=== PATIENT | male | born 1985 | race Caucasian/White ===

== ENCOUNTER 2020-09-26 18:17 | Inpatient (IN) | payer BC ==
[2020-09-26] MEDS ORDERED: Sodium Chloride 0.9% 1,000 ML IV ONE (18:57)
[2020-09-26] MEDS ORDERED: fentaNYL 50 MCG/ML SDV IVPUSH ONE ×2 (18:57→19:58)
[2020-09-26] MEDS ORDERED: Ondansetron 4 MG/2 ML SDV IVPUSH ONE (18:57)
--- NOTE | 2020-09-26 19:39 | EDM.PDOC ---
ED HPI GENERAL MEDICAL PROBLEM - General Chief Complaint: Genitourinary Problem Stated Complaint: KIDNEY STONES COMPLICATIONS Time Seen by Provider: 09/26/20 18:44 Source of Information: Reports: Patient History Limitations: Reports: No Limitations - History of Present Illness INITIAL COMMENTS - FREE TEXT/NARRATIVE: Presents reporting left flank and abdominal pain started at about noon today. Some nausea off and on. He reports the pain is sharp and shooting. He has a previous history of a kidney stone which he was able to pass on his own. He had no fever, dysuria. Is otherwise healthy without chronic medical problems and takes no medications. He occasionally smokes cigarettes. No recreational drugs or alcohol. Left Flank Pain Score (Numeric/FACES): 8 - Related Data Allergies Allergy/AdvReac Type Severity Reaction Status Date / Time No Known Allergies Allergy Verified 04/10/18 09:40 MDT Home Meds: Home Meds Ondansetron [Zofran] 4 mg BUCCAL Q6H PRN #5 tab 03/26/18 [Rx] Tamsulosin [Tamsulosin 24 Hr] 0.4 mg PO DAILY #5 cap.er 03/26/18 [Rx] Acetaminophen/HYDROcodone [[place] 325-5 MG] 1 - 2 tab PO Q6H PRN #20 tablet 04/10/18 [Rx] Ondansetron [Zofran ODT] 1 tab PO Q8H PRN #10 tab.dis 04/10/18 [Rx] Tamsulosin HCl [Flomax] 1 cap PO QAM PRN #5 cap.er.24h 04/10/18 [Rx] Past Medical History - Past Health History Medical/Surgical History: Denies Medical/Surgical History Genitourinary History: Reports: Renal Calculus - Infectious Disease History Infectious Disease History: Reports: None - Past Surgical History HEENT Surgical History: Reports: Oral Surgery Male Surgical History: Reports: Other (See Below) Other Male Surgeries/Procedures: Plates put in hand. 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 ED EXAM, GI/ABD - Physical Exam Exam: See Below Exam Limited By: No Limitations General Appearance: Alert, Mild Distress (Due to abdominal pain) Ears: Normal External Exam Nose: Normal Inspection Throat/Mouth: Normal Inspection Head: Atraumatic, Normocephalic Neck: Normal Inspection Respiratory/Chest: No Respiratory Distress, Lungs Clear, Normal Breath Sounds Cardiovascular: Normal Peripheral Pulses, Regular Rate, Rhythm, No Murmur GI/Abdominal Exam: No Distention, Rigid, Tender (Diffusely) Extremities: Normal Inspection Neurological: Alert, Oriented, Normal Cognition Psychiatric: Normal Affect, Normal Mood Skin Exam: Warm, Dry, Intact, Normal Color, No Rash Lymphatic: No Adenopathy Course - Vital Signs Last Recorded V/S: Last Vital Signs Temp 36.8 C 09/26/20 18:56 Pulse 105 H 09/26/20 18:56 Resp 17 09/26/20 18:56 BP 141/93 H 09/26/20 18:56 Pulse Ox 98 09/26/20 18:56 - Orders/Labs/Meds Orders: Active Orders 24 hr Category Date Time Status Abdomen Ltd [US] Stat Exams 09/26/20 20:27 Ordered Labs: Laboratory Tests 09/26/20 09/26/20 09/26/20 Range/Units 18:52 19:35 19:35 WBC 9.28 (4.0-11.0) K/uL RBC 4.29 L (4.50-5.90) M/uL Hgb 15.0 (13.0-17.0) g/dL Hct 44.1 (38.0-50.0) % MCV 102.8 H (80.0-98.0) fL MCH 35.0 H (27.0-32.0) pg MCHC 34.0 (31.0-37.0) g/dL RDW Std Deviation 52.2 (28.0-62.0) fl RDW Coeff of Jamie 14 (11.0-15.0) % Plt Count 134 L (150-400) K/uL MPV 10.70 (7.40-12.00) fL Neut % (Auto) 83.1 H (48.0-80.0) % Lymph % (Auto) 8.6 L (16.0-40.0) % [place] % (Auto) 7.4 (0.0-15.0) % Eos % (Auto) 0.8 (0.0-7.0) % Baso % (Auto) 0.1 (0.0-1.5) % Neut # (Auto) 7.7 H (1.4-5.7) K/uL Lymph # (Auto) 0.8 (0.6-2.4) K/uL [place] # (Auto) 0.7 (0.0-0.8) K/uL Eos # (Auto) 0.1 (0.0-0.7) K/uL Baso # (Auto) 0.0 (0.0-0.1) K/uL Nucleated RBC % 0.0 /100WBC Nucleated RBCs # 0 K/uL Sodium 137 (136-148) mmol/L Potassium 3.7 (3.5-5.1) mmol/L Chloride 102 (98-107) mmol/L Carbon Dioxide 25.3 (21.0-32.0) mmol/L BUN 11 (7.0-18.0) mg/dL Creatinine 0.9 (0.8-1.3) mg/dL Est Cr Clr Drug Dosing 119.41 mL/min Estimated GFR (MDRD) > 60.0 ml/min Glucose 103 (74-106) mg/dL Calcium 9.8 (8.5-10.1) mg/dL Total Bilirubin 0.7 (0.2-1.0) mg/dL AST 23 (15-37) IU/L ALT 26 (14-63) IU/L Alkaline Phosphatase 77 (46-116) U/L Total Protein 7.4 (6.4-8.2) g/dL Albumin 3.6 (3.4-5.0) g/dL Globulin 3.8 (2.6-4.0) g/dL Albumin/Globulin Ratio 0.9 (0.9-1.6) Amylase 101 (25-115) U/L Lipase 517 H (73-393) U/L Urine Color YELLOW Urine Appearance CLEAR Urine pH 8.0 (5.0-8.0) Ur Specific [place] 1.020 (1.001-1.035) Urine Protein NEGATIVE (NEGATIVE) mg/dL Urine Glucose (UA) NEGATIVE (NEGATIVE) mg/dL Urine Ketones NEGATIVE (NEGATIVE) mg/dL Urine Occult Blood NEGATIVE (NEGATIVE) Urine Nitrite NEGATIVE (NEGATIVE) Urine Bilirubin NEGATIVE (NEGATIVE) Urine Urobilinogen 0.2 (<2.0) EU/dL Ur Leukocyte Esterase NEGATIVE (NEGATIVE) Meds: Medications Discontinued Medications Generic Name Dose Route Start Last Admin Trade Name Freq PRN Reason Stop Dose Admin Fentanyl 50 mcg 09/26/20 18:57 09/26/20 19:32 Fentanyl IVPUSH 09/26/20 18:58 50 mcg ONETIME ONE Administration Fentanyl 50 mcg 09/26/20 19:58 09/26/20 20:09 Fentanyl IVPUSH 09/26/20 19:59 50 mcg ONETIME ONE Administration Sodium Chloride 1,000 mls @ 999 mls/hr 09/26/20 18:57 09/26/20 19:31 Normal Saline IV 09/26/20 19:57 999 mls/hr .Bolus ONE Administration Ondansetron HCl 4 mg 09/26/20 18:57 09/26/20 19:32 Zofran IVPUSH 09/26/20 18:58 4 mg ONETIME ONE Administration - Re-Assessments/Exams Free Text/Narrative Re-Assessment/Exam: Case reviewed with Dr. Alarcon. We will get a GB US. Patient now states that he did have an alcohol problem for two years but in the last 6 months he has only drank 1-2 nights a week. 09/26/20 20:29 Free Text/Narrative Re-Assessment/Exam: 09/26/20 21:[address] Cordova regarding labs, imaging, history, clinical course. Same will refer to observation. Departure - Departure Time of Disposition: 21:38 Disposition: Refer to Observation Condition: Good Clinical Impression: Pancreatitis Qualifiers: Chronicity: acute Pancreatitis type: unspecified pancreatitis type Acute pancreatitis complication: no infection or necrosis Qualified Code(s): K85.90 - Acute pancreatitis without necrosis or infection, unspecified - Discharge Information Referrals: PCP,None [Primary Care Provider] - Forms: ED Department Discharge Sepsis Event Note (ED) - Evaluation Sepsis Screening Result: No Definite Risk - Focused Exam Vital Signs: Vital Signs Temp Pulse Resp BP Pulse Ox 12/08/20 18:56 36.8 C 105 H 17 141/93 H 98 - My Orders Last 24 Hours: My Active Orders 09/26/20 20:27 Abdomen Ltd [US] Stat - Assessment/Plan Last 24 Hours: My Active Orders 09/26/20 20:27 Abdomen Ltd [US] Stat
--- NOTE | 2020-09-26 19:59 | CT ---
INDICATION: Abdominal pain and left flank pain. COMPARISON: None available TECHNIQUE: CT examination of the abdomen and pelvis was performed without contrast enhancement using 3 mm thick axial sections from the lung bases through the pubic symphysis. Oral contrast was not administered. Please note that all CT scans at this facility use dose modulation, iterative reconstruction, and/or weight-based dosing when appropriate to reduce radiation dose to as low as reasonably achievable. FINDINGS: In the abdomen, the unenhanced liver, spleen, and adrenals are normal in appearance. There is mild soft tissue stranding located around the pancreatic head with mild fullness of the pancreatic head, findings suggesting mild acute pancreatitis. There is no sign of pseudocyst, phlegmon, or hemorrhage. The pancreatic body and tail are normal in appearance. There are multiple small bilateral nonobstructive calculi scattered throughout both kidneys. The largest calculus is in the lower pole on the left, measuring 6 millimeters in length. There is no sign hydronephrosis or hydroureter on either side. There is no sign of any ureteral calculi. There is a high density 8 millimeter nodule arising from the lower pole of the left kidney. This is probably a high-density cyst, but I recommend correlation with ultrasound to exclude a solid mass. The gallbladder is normal in appearance. The abdominal aorta is normal in caliber with no sign of dilatation. There is no sign of retroperitoneal mass or adenopathy. The stomach, loops of small bowel, and colon in the abdomen are normal in appearance. In the pelvis, the appendix is normal in appearance with no sign of inflammatory process. The loops of small bowel and colon in the pelvis are normal in appearance. The prostate is moderately enlarged and is otherwise normal in appearance. The urinary bladder is normal in appearance. There is no sign of pelvic or inguinal mass or adenopathy. There is no sign of free air or free fluid in the abdomen or pelvis. The lung bases are clear. The osseous structures are normal in appearance for the patient`s age. IMPRESSION: No sign of hydronephrosis, hydroureter, or ureteral calculi on the left to explain the patient`s left flank pain. CT of the abdomen shows findings consistent with mild acute pancreatitis involving the pancreatic head. Numerous nonobstructive calculi scattered throughout both kidneys. The largest is a 6 millimeter calculus located in the lower pole. 8 millimeter high density nodule arising from the lower pole of the left kidney, probably a high-density cyst, but recommend correlation with ultrasound to exclude a solid mass. CT of the pelvis shows moderate enlargement of the prostate. Please note that all CT scans at this facility use dose modulation, iterative reconstruction, and/or weight-based dosing when appropriate to reduce radiation dose to as low as reasonably achievable. Dictated by Norm Perez MD @ Sep 26 2020 7:47PM Signed by Dr. Norm Perez @ Sep 26 2020 7:59PM
[2020-09-26 20:05] LABS: BLOOD UREA NITROGEN,BUN 11 mg/dL (7.0-18.0); CARBON DIOXIDE,CO2 25.3 mmol/L (21.0-32.0); CHLORIDE,CL 102 mmol/L (98-107); GLUCOSE RANDOM 103 mg/dL (74-106); LIPASE 517 U/L (73-393); POTASSIUM,K 3.7 mmol/L (3.5-5.1); SODIUM,NA 137 mmol/L (136-148)
[2020-09-26] MEDS ORDERED: fentaNYL 100 MCG/2 ML SDV IVPUSH ONE (21:08)
--- NOTE | 2020-09-26 22:45 | US ---
INDICATION: Right upper quadrant pain. TECHNIQUE: Ultrasound abdomen limited. Sonographic images of the right upper quadrant were obtained using burk-scale and color Doppler images. COMPARISON: A CT scan from the same date. FINDINGS: Liver: Hepatomegaly measuring 19.6 cm. Mildly coarse hepatic echotexture with foci of mildly increased echogenicity. No discrete hepatic lesion demonstrated. Gallbladder: A contracted gallbladder. No discrete shadowing gallstones seen. Thickened gallbladder wall measuring up to 6 mm. A reported positive sonographic Salomon`s sign. Common bile duct: 3-4 mm. Pancreas: Not seen due to obscuring bowel gas. Right kidney: 10.9 x 5.4 x 6.6 cm. Unremarkable echotexture and cortex. No masses, stones, or hydronephrosis. Vasculature: Partially obscured. The visualized portions are within normal limits in caliber. IMPRESSION: Hepatomegaly with mildly coarse hepatic echotexture and foci of mildly increased echogenicity, which could represent mild steatosis. Correlate with hepatic enzymes to exclude hepatocellular disease. A contracted gallbladder with gallbladder wall thickening and a positive sonographic Salomon sign, however no definite shadowing gallstones seen, given the limitations of a contracted state. The findings may be related to hepatic disease. Correlate clinically, including for acute hepatitis, and, if indicated, consider further evaluation with HIDA scan. Limited evaluation of the pancreas. Dictated by Pratik Barnes MD @ Sep 26 2020 10:34PM Signed by Dr. Pratik Barnes @ Sep 26 2020 10:44PM
[2020-09-26] MEDS ORDERED: HYDROmorphone 1 MG/ML Syringe IVPUSH ONE (22:48)
[2020-09-26] MEDS: fentaNYL 50 MCG/ML SDV ONE ×2 (23:11→23:16)
[2020-09-27] MEDS ORDERED: Albuterol/Ipratropium 3.0-0.5 MG/3 ML Neb Soln NEB PRN (00:18)
[2020-09-27] MEDS ORDERED: Ondansetron 4 MG/2 ML SDV IVPUSH PRN (00:18)
--- NOTE | 2020-09-27 00:22 | PCM.SN.2 ---
- Free Text/Narrative Note: Patient was presented to me on 09/26/20 at 21:16, Hepatic USG was pending so admission was held till work up was complete, patient was officially accepted for admission to [facility] after USG was read by radiology around 10:44 pm.
[2020-09-27] MEDS ORDERED: Lactated Ringers 1,000 ML IV SCH (00:30)
--- NOTE | 2020-09-27 00:30 | PCM.HP.2 ---
H&P History of Present Illness - General Date of Service: 09/27/20 Admit Problem/Dx: Admission Diagnosis/Problem Admission Diagnosis/Problem Pancreatitis - History of Present Illness Initial Comments - Free Text/Narative: Patient is a 35 y/o M with PMH of kidney stones, who comes in with c/o abdominal pain, left flank that started at about noon today with some Nausea. Patient described the pain shooting , off and on, in his upper abdomen mostly and radiating to back as well. He states he has had passed stones in past but this pain was different. Patient denied fever, chills, vomiting, dysuria. He occasionally smokes cigarettes, states usually binge drinks beer over the weekend. No recreational drugs. CT scan of abdomen showed pancreatitis,no cyst, abscess, USG abdomen didnt show any gall stones, but did show contracted gall bladder with wall thickening, hepatomegaly with mild coarse hepatic texture. Liver enzymes were normal, lipase was elevated. Patient also states he had some black stools today, stools were semi solid, no diarrhea, upon further enuiry, patient stated he did take pepto-bismol at home. Patient is admitted for further work up. Left Flank Pain Score (Numeric/FACES): 8 - Related Data Allergies/Adverse Reactions: Allergies Allergy/AdvReac Type Severity Reaction Status Date / Time No Known Allergies Allergy Verified 04/10/18 09:40 MDT Home Medications: Home Meds Ondansetron [Zofran] 4 mg BUCCAL Q6H PRN #5 tab 03/26/18 [Rx] Tamsulosin [Tamsulosin 24 Hr] 0.4 mg PO DAILY #5 cap.er 03/26/18 [Rx] Acetaminophen/HYDROcodone [[place] 325-5 MG] 1 - 2 tab PO Q6H PRN #20 tablet 04/10/18 [Rx] Ondansetron [Zofran ODT] 1 tab PO Q8H PRN #10 tab.dis 04/10/18 [Rx] Tamsulosin HCl [Flomax] 1 cap PO QAM PRN #5 cap.er.24h 04/10/18 [Rx] Past Medical History - Past Health History Medical/Surgical History: Denies Medical/Surgical History Genitourinary History: Reports: Renal Calculus - Infectious Disease History Infectious Disease History: Reports: None - Past Surgical History HEENT Surgical History: Reports: Oral Surgery Male Surgical History: Reports: Other (See Below) Other Male Surgeries/Procedures: Plates put in hand. Testicle rupture Musculoskeletal Surgical History: Reports: ORIF Other Musculoskeletal Surgeries/Procedures:: right wrist Social & Family History - Family History Family Medical History: No Pertinent Family History - Tobacco Use Tobacco Use Status *Q: Unknown Ever Used Tobacco - Caffeine Use Caffeine Use: Reports: Soda - Recreational Drug Use Recreational Drug Use: No - Living Situation & Occupation Living situation: Reports: Single, with Significant Other (Girlfriend) Occupation: Employed ([employer]er) H&P Review of Systems - Review of Systems: Review Of Systems: See Below General: Reports: Malaise. Denies: Fever, Chills, Weakness, Fatigue Pulmonary: Denies: Shortness of Breath, Wheezing Cardiovascular: Denies: Chest Pain, Palpitations, Dyspnea on Exertion Gastrointestinal: Reports: Abdominal Pain, Anorexia, Black Stool, Constipation, Decreased Appetite, Nausea. Denies: Bloody Stool, Diarrhea, Difficulty Swallowing, Hematochezia, Stool Incontinence, Vomiting Genitourinary: Reports: Flank Pain. Denies: Dysuria, Frequency, Burning Skin: Denies: Cyanosis, Jaundice, Mottled Psychiatric: Denies: Confusion, Depression, Mood Lability Exam - Exam Exam: See Below - Vital Signs Vital Signs: Last Vital Signs Temp 36.6 C 09/26/20 23:35 Pulse 85 09/26/20 23:35 Resp 16 09/26/20 23:35 BP 152/93 H 09/26/20 23:35 Pulse Ox 96 09/26/20 23:35 Weight: 78.5 kg - Exam Quality Assessment: No: Supplemental Oxygen General: Alert, Oriented, Mild Distress Neck: Supple, Trachea Midline Lungs: Clear to Auscultation, Normal Respiratory Effort Cardiovascular: Regular Rate, Regular Rhythm, Normal S1, Normal S2 - Patient Data Lab Results Last 24 hrs: Laboratory Results - last 24 hr 09/26/20 09/26/20 09/26/20 Range/Units 18:52 19:35 19:35 WBC 9.28 (4.0-11.0) K/uL RBC 4.29 L (4.50-5.90) M/uL Hgb 15.0 (13.0-17.0) g/dL Hct 44.1 (38.0-50.0) % MCV 102.8 H (80.0-98.0) fL MCH 35.0 H (27.0-32.0) pg MCHC 34.0 (31.0-37.0) g/dL RDW Std Deviation 52.2 (28.0-62.0) fl RDW Coeff of Jamie 14 (11.0-15.0) % Plt Count 134 L (150-400) K/uL MPV 10.70 (7.40-12.00) fL Neut % (Auto) 83.1 H (48.0-80.0) % Lymph % (Auto) 8.6 L (16.0-40.0) % [place] % (Auto) 7.4 (0.0-15.0) % Eos % (Auto) 0.8 (0.0-7.0) % Baso % (Auto) 0.1 (0.0-1.5) % Neut # (Auto) 7.7 H (1.4-5.7) K/uL Lymph # (Auto) 0.8 (0.6-2.4) K/uL [place] # (Auto) 0.7 (0.0-0.8) K/uL Eos # (Auto) 0.1 (0.0-0.7) K/uL Baso # (Auto) 0.0 (0.0-0.1) K/uL Nucleated RBC % 0.0 /100WBC Nucleated RBCs # 0 K/uL Sodium 137 (136-148) mmol/L Potassium 3.7 (3.5-5.1) mmol/L Chloride 102 (98-107) mmol/L Carbon Dioxide 25.3 (21.0-32.0) mmol/L BUN 11 (7.0-18.0) mg/dL Creatinine 0.9 (0.8-1.3) mg/dL Est Cr Clr Drug Dosing 119.41 mL/min Estimated GFR (MDRD) > 60.0 ml/min Glucose 103 (74-106) mg/dL Calcium 9.8 (8.5-10.1) mg/dL Total Bilirubin 0.7 (0.2-1.0) mg/dL AST 23 (15-37) IU/L ALT 26 (14-63) IU/L Alkaline Phosphatase 77 (46-116) U/L Total Protein 7.4 (6.4-8.2) g/dL Albumin 3.6 (3.4-5.0) g/dL Globulin 3.8 (2.6-4.0) g/dL Albumin/Globulin Ratio 0.9 (0.9-1.6) Amylase 101 (25-115) U/L Lipase 517 H (73-393) U/L Urine Color YELLOW Urine Appearance CLEAR Urine pH 8.0 (5.0-8.0) Ur Specific [place] 1.020 (1.001-1.035) Urine Protein NEGATIVE (NEGATIVE) mg/dL Urine Glucose (UA) NEGATIVE (NEGATIVE) mg/dL Urine Ketones NEGATIVE (NEGATIVE) mg/dL Urine Occult Blood NEGATIVE (NEGATIVE) Urine Nitrite NEGATIVE (NEGATIVE) Urine Bilirubin NEGATIVE (NEGATIVE) Urine Urobilinogen 0.2 (<2.0) EU/dL Ur Leukocyte Esterase NEGATIVE (NEGATIVE) SARS-CoV-2 RNA (ROBIN[place]) (NEGATIVE) 09/26/20 Range/Units 21:10 WBC (4.0-11.0) K/uL RBC (4.50-5.90) M/uL Hgb (13.0-17.0) g/dL Hct (38.0-50.0) % MCV (80.0-98.0) fL MCH (27.0-32.0) pg MCHC (31.0-37.0) g/dL RDW Std Deviation (28.0-62.0) fl RDW Coeff of [place] (11.0-15.0) % Plt Count (150-400) K/uL MPV (7.40-12.00) fL Neut % (Auto) (48.0-80.0) % Lymph % (Auto) (16.0-40.0) % [place] % (Auto) (0.0-15.0) % Eos % (Auto) (0.0-7.0) % Baso % (Auto) (0.0-1.5) % Neut # (Auto) (1.4-5.7) K/uL Lymph # (Auto) (0.6-2.4) K/uL [place] # (Auto) (0.0-0.8) K/uL Eos # (Auto) (0.0-0.7) K/uL Baso # (Auto) (0.0-0.1) K/uL Nucleated RBC % /100WBC Nucleated RBCs # K/uL Sodium (136-148) mmol/L Potassium (3.5-5.1) mmol/L Chloride (98-107) mmol/L Carbon Dioxide (21.0-32.0) mmol/L BUN (7.0-18.0) mg/dL Creatinine (0.8-1.3) mg/dL Est Cr Clr Drug Dosing mL/min Estimated GFR (MDRD) ml/min Glucose (74-106) mg/dL Calcium (8.5-10.1) mg/dL Total Bilirubin (0.2-1.0) mg/dL AST (15-37) IU/L ALT (14-63) IU/L Alkaline Phosphatase (46-116) U/L Total Protein (6.4-8.2) g/dL Albumin (3.4-5.0) g/dL Globulin (2.6-4.0) g/dL Albumin/Globulin Ratio (0.9-1.6) Amylase (25-115) U/L Lipase (73-393) U/L Urine Color Urine Appearance Urine pH (5.0-8.0) Ur Specific [place] (1.001-1.035) Urine Protein (NEGATIVE) mg/dL Urine Glucose (UA) (NEGATIVE) mg/dL Urine Ketones (NEGATIVE) mg/dL Urine Occult Blood (NEGATIVE) Urine Nitrite (NEGATIVE) Urine Bilirubin (NEGATIVE) Urine Urobilinogen (<2.0) EU/dL Ur Leukocyte Esterase (NEGATIVE) SARS-CoV-2 RNA (ROBINSON) NEGATIVE (NEGATIVE) Result Diagrams: 09/26/20 19:35 09/26/20 19:35 Sepsis Event Note - Evaluation Sepsis Screening Result: No Definite Risk - Focused Exam Vital Signs: Vital Signs Temp Pulse Resp BP Pulse Ox 09/26/20 23:35 36.6 C 85 16 152/93 H 96 09/26/20 20:32 83 16 137/90 98 09/26/20 19:30 98 16 137/93 H 97 09/26/20 18:56 36.8 C 105 H 17 141/93 H 98 - Problem List (1) Pancreatitis SNOMED Code(s): 81717392 ICD Code: K85.90 - ACUTE PANCREATITIS WITHOUT NECROSIS OR INFECTION, UNSP Status: Acute Current Visit: Yes Qualifiers: Chronicity: acute Pancreatitis type: unspecified pancreatitis type Acute pancreatitis complication: no infection or necrosis Qualified Code(s): K85.90 - Acute pancreatitis without necrosis or infection, unspecified (2) Ureterolithiasis SNOMED Code(s): 35902799 ICD Code: N20.1 - CALCULUS OF URETER Status: Acute Current Visit: No Problem List Initiated/Reviewed/Updated: Yes Orders Last 24hrs: Active Orders 24 hr Category Date Time Status Patient Status [ADT] Stat ADT 09/26/20 22:45 Active Ambulate [RC] ASDIRECTED Care 09/27/20 00:18 Active Antiembolic Devices [RC] PER UNIT ROUTINE Care 09/27/20 00:20 Active Blood Glucose Check, Bedside [RC] Q6H Care 09/27/20 00:18 Active Oxygen Therapy [RC] PRN Care 09/27/20 00:18 Active Pulse Oximetry [RC] PRN Care 09/27/20 00:19 Active RT Aerosol Therapy [RC] ASDIRECTED Care 09/27/20 00:21 Active VTE/DVT Education [RC] PER UNIT ROUTINE Care 09/27/20 00:18 Active Vital Signs [RC] Q4H Care 09/27/20 00:18 Active Nothing per Oral Now Diet [DIET] Diet 09/27/20 Breakfast Active Albuterol/Ipratropium [DuoNeb 3.0-0.5 MG/3 ML] Med 09/27/20 00:18 Active 3 ml NEB Q4HRRT PRN HYDROmorphone [Dilaudid] Med 09/27/20 01:30 Active 1 mg IVPUSH Q3H PRN Lactated Ringers [Ringers, Lactated] 1,000 ml Med 09/27/20 00:30 Active IV ASDIRECTED Ondansetron [Zofran] Med 09/27/20 00:18 Active 4 mg IVPUSH Q4H PRN Pantoprazole [ProTONIX IV] Med 09/27/20 09:00 Active 40 mg IV Q12HR Sequential Compression Device [OM.PC] Per Unit Routine Oth 09/27/20 00:19 Ordered Resuscitation Status Routine Resus Stat 09/27/20 00:18 Ordered Medication Orders Albuterol/Ipratropium (Duoneb 3.0-0.5 Mg/3 Ml) 3 ml NEB Q4HRRT PRN PRN Reason: Shortness Of Breath/wheezing Hydromorphone HCl (Dilaudid) 1 mg IVPUSH Q3H PRN PRN Reason: Pain (severe 7-10) Lactated Ringer's (Ringers, Lactated) 1,000 mls @ 125 mls/hr IV ASDIRECTED CELI Ondansetron HCl (Zofran) 4 mg IVPUSH Q4H PRN PRN Reason: Nausea/Vomiting Pantoprazole Sodium (Protonix Iv) 40 mg IV Q12HR CELI Assessment/Plan Comment:: 35 y/o M admitted for acute pancreatitis Has some coarse hepatic echotexture CT scan Abdomen, US liver noted NPO for now Start IV fluids PPI IV BID check stool for blood Dilaudid for pain SCD for dvt ppx for now, hold lovenox for now till we rule out GI bleeding Monitor and replete electrolytes as needed Hepatitis work up High BP secondary to pain vs primary HTN Check HbA1c, TSH, lipid panel
[2020-09-27] MEDS: HYDROmorphone 1 MG/ML Syringe IVPUSH PRN ×5 (01:30→22:04)
[2020-09-27 05:35] LABS: HEMOGLOBIN A1C 4.9 %
[2020-09-27 05:39] LABS: BLOOD UREA NITROGEN,BUN 9 mg/dL (7.0-18.0); CARBON DIOXIDE,CO2 27.5 mmol/L (21.0-32.0); CHLORIDE,CL 103 mmol/L (98-107); GLUCOSE RANDOM 102 mg/dL (74-106); POTASSIUM,K 3.7 mmol/L (3.5-5.1); SODIUM,NA 138 mmol/L (136-148)
[2020-09-27 08:14] LABS: BILIRUBIN INDIRECT 0.7
[2020-09-27] MEDS: Pantoprazole 40 MG in Sodium Chloride 0.9% 10 ML IV SCH (08:58)
[2020-09-27] MEDS ORDERED: Pantoprazole 40 MG Vial IV SCH (09:00)
[2020-09-27] MEDS: Lactated Ringers 1,000 ML IV SCH ×5 (09:00→22:02)
--- NOTE | 2020-09-27 10:34 | PCM.PN ---
- General Info Date of Service: 09/27/20 Admission Dx/Problem (Free Text): Admission Diagnosis/Problem Admission Diagnosis/Problem Pancreatitis Subjective Update: Reports continued to have mid abdominal pain. Radiation to back has improved. No right upper quadrant pain. He reports he is passing gas no further bowel movements. Denies any nausea or vomiting. He is asking for clear liquid diet. Functional Status: Reports: Pain Controlled (Reports Dilaudid is helping pain feels like it is controlled well and going past 3 hours when Dilaudid is due.), Ambulating, Urinating - Review of Systems General: Reports: No Symptoms. Denies: Fever, Weakness HEENT: Reports: No Symptoms. Denies: Headaches, Sore Throat, Visual Changes Pulmonary: Reports: No Symptoms (Only reports that pain is hindering the deep breaths.). Denies: Shortness of Breath Cardiovascular: Reports: No Symptoms. Denies: Chest Pain Gastrointestinal: Reports: Abdominal Pain (Mid abdominal epigastric region), Flatus. Denies: Diarrhea, Nausea, Vomiting Genitourinary: Reports: No Symptoms. Denies: Dysuria, Frequency Musculoskeletal: Reports: No Symptoms Skin: Reports: No Symptoms Neurological: Reports: No Symptoms. Denies: Tremors, Difficulty Walking Psychiatric: Reports: No Symptoms. Denies: Anxiety - Patient Data Vitals - Most Recent: Last Vital Signs Temp 97.6 F 09/27/20 04:15 Pulse 72 09/27/20 04:15 Resp 17 09/27/20 04:15 BP 133/80 09/27/20 04:15 Pulse Ox 96 09/27/20 04:15 Weight - Most Recent: 78.5 kg Lab Results Last 24 Hours: Laboratory Results - last 24 hr 09/26/20 09/26/20 09/26/20 Range/Units 18:52 19:35 19:35 WBC 9.28 (4.0-11.0) K/uL RBC 4.29 L (4.50-5.90) M/uL Hgb 15.0 (13.0-17.0) g/dL Hct 44.1 (38.0-50.0) % MCV 102.8 H (80.0-98.0) fL MCH 35.0 H (27.0-32.0) pg MCHC 34.0 (31.0-37.0) g/dL RDW Std Deviation 52.2 (28.0-62.0) fl RDW Coeff of Jamie 14 (11.0-15.0) % Plt Count 134 L (150-400) K/uL MPV 10.70 (7.40-12.00) fL Neut % (Auto) 83.1 H (48.0-80.0) % Lymph % (Auto) 8.6 L (16.0-40.0) % [place] % (Auto) 7.4 (0.0-15.0) % Eos % (Auto) 0.8 (0.0-7.0) % Baso % (Auto) 0.1 (0.0-1.5) % Neut # (Auto) 7.7 H (1.4-5.7) K/uL Lymph # (Auto) 0.8 (0.6-2.4) K/uL [place] # (Auto) 0.7 (0.0-0.8) K/uL Eos # (Auto) 0.1 (0.0-0.7) K/uL Baso # (Auto) 0.0 (0.0-0.1) K/uL Nucleated RBC % 0.0 /100WBC Nucleated RBCs # 0 K/uL Sodium 137 (136-148) mmol/L Potassium 3.7 (3.5-5.1) mmol/L Chloride 102 (98-107) mmol/L Carbon Dioxide 25.3 (21.0-32.0) mmol/L BUN 11 (7.0-18.0) mg/dL Creatinine 0.9 (0.8-1.3) mg/dL Est Cr Clr Drug Dosing 119.41 mL/min Estimated GFR (MDRD) > 60.0 ml/min Glucose 103 (74-106) mg/dL POC Glucose (60-110) mg/dL Hemoglobin A1c (4.5 - 6.2) % Calcium 9.8 (8.5-10.1) mg/dL Phosphorus (2.6-4.7) mg/dL Magnesium (1.8-2.4) mg/dL Total Bilirubin 0.7 (0.2-1.0) mg/dL Direct Bilirubin (0.0-0.5) mg/dL Indirect Bilirubin AST 23 (15-37) IU/L ALT 26 (14-63) IU/L Alkaline Phosphatase 77 (46-116) U/L Total Protein 7.4 (6.4-8.2) g/dL Albumin 3.6 (3.4-5.0) g/dL Globulin 3.8 (2.6-4.0) g/dL Albumin/Globulin Ratio 0.9 (0.9-1.6) Triglycerides (0-200) mg/dL Cholesterol (50-200) mg/dL LDL Cholesterol, Calc (60-180) mg/dL VLDL Cholesterol (5-55) mg/dL HDL Cholesterol (40-60) mg/dL Cholesterol/HDL Ratio (3.3-6.0) Amylase 101 (25-115) U/L Lipase 517 H (73-393) U/L TSH 3rd Generation (0.36-3.74) uIU/mL Urine Color YELLOW Urine Appearance CLEAR Urine pH 8.0 (5.0-8.0) Ur Specific [place] 1.020 (1.001-1.035) Urine Protein NEGATIVE (NEGATIVE) mg/dL Urine Glucose (UA) NEGATIVE (NEGATIVE) mg/dL Urine Ketones NEGATIVE (NEGATIVE) mg/dL Urine Occult Blood NEGATIVE (NEGATIVE) Urine Nitrite NEGATIVE (NEGATIVE) Urine Bilirubin NEGATIVE (NEGATIVE) Urine Urobilinogen 0.2 (<2.0) EU/dL Ur Leukocyte Esterase NEGATIVE (NEGATIVE) SARS-CoV-2 RNA (ROBINSON) (NEGATIVE) 09/26/20 09/27/20 09/27/20 Range/Units 21:10 01:54 04:47 WBC (4.0-11.0) K/uL RBC (4.50-5.90) M/uL Hgb (13.0-17.0) g/dL Hct (38.0-50.0) % MCV (80.0-98.0) fL MCH (27.0-32.0) pg MCHC (31.0-37.0) g/dL RDW Std Deviation (28.0-62.0) fl RDW Coeff of Jamie (11.0-15.0) % Plt Count (150-400) K/uL MPV (7.40-12.00) fL Neut % (Auto) (48.0-80.0) % Lymph % (Auto) (16.0-40.0) % [place] % (Auto) (0.0-15.0) % Eos % (Auto) (0.0-7.0) % Baso % (Auto) (0.0-1.5) % Neut # (Auto) (1.4-5.7) K/uL Lymph # (Auto) (0.6-2.4) K/uL [place] # (Auto) (0.0-0.8) K/uL Eos # (Auto) (0.0-0.7) K/uL Baso # (Auto) (0.0-0.1) K/uL Nucleated RBC % /100WBC Nucleated RBCs # K/uL Sodium 138 (136-148) mmol/L Potassium 3.7 (3.5-5.1) mmol/L Chloride 103 (98-107) mmol/L Carbon Dioxide 27.5 (21.0-32.0) mmol/L BUN 9 (7.0-18.0) mg/dL Creatinine 0.9 (0.8-1.3) mg/dL Est Cr Clr Drug Dosing 119.41 mL/min Estimated GFR (MDRD) > 60.0 ml/min Glucose 102 (74-106) mg/dL POC Glucose 85 (60-110) mg/dL Hemoglobin A1c (4.5 - 6.2) % Calcium 8.6 (8.5-10.1) mg/dL Phosphorus 3.2 (2.6-4.7) mg/dL Magnesium 1.8 (1.8-2.4) mg/dL Total Bilirubin (0.2-1.0) mg/dL Direct Bilirubin (0.0-0.5) mg/dL Indirect Bilirubin AST (15-37) IU/L ALT (14-63) IU/L Alkaline Phosphatase (46-116) U/L Total Protein (6.4-8.2) g/dL Albumin (3.4-5.0) g/dL Globulin (2.6-4.0) g/dL Albumin/Globulin Ratio (0.9-1.6) Triglycerides 63 (0-200) mg/dL Cholesterol 137 (50-200) mg/dL LDL Cholesterol, Calc 51 L (60-180) mg/dL VLDL Cholesterol 12 (5-55) mg/dL HDL Cholesterol 73 H (40-60) mg/dL Cholesterol/HDL Ratio 1.9 L (3.3-6.0) Amylase (25-115) U/L Lipase (73-393) U/L TSH 3rd Generation 0.85 (0.36-3.74) uIU/mL Urine Color Urine Appearance Urine pH (5.0-8.0) Ur Specific [place] (1.001-1.035) Urine Protein (NEGATIVE) mg/dL Urine Glucose (UA) (NEGATIVE) mg/dL Urine Ketones (NEGATIVE) mg/dL Urine Occult Blood (NEGATIVE) Urine Nitrite (NEGATIVE) Urine Bilirubin (NEGATIVE) Urine Urobilinogen (<2.0) EU/dL Ur Leukocyte Esterase (NEGATIVE) SARS-CoV-2 RNA ([place]) NEGATIVE (NEGATIVE) 09/27/20 09/27/20 09/27/20 Range/Units 04:47 04:47 04:47 WBC 8.38 (4.0-11.0) K/uL RBC 3.87 L (4.50-5.90) M/uL Hgb 13.6 (13.0-17.0) g/dL Hct 40.3 (38.0-50.0) % MCV 104.1 H (80.0-98.0) fL MCH 35.1 H (27.0-32.0) pg MCHC 33.7 (31.0-37.0) g/dL RDW Std Deviation 52.8 (28.0-62.0) fl RDW Coeff of Jamie 14 (11.0-15.0) % Plt Count 116 L (150-400) K/uL MPV 10.70 (7.40-12.00) fL Neut % (Auto) 75.3 (48.0-80.0) % Lymph % (Auto) 14.0 L (16.0-40.0) % [place] % (Auto) 8.6 (0.0-15.0) % Eos % (Auto) 2.0 (0.0-7.0) % Baso % (Auto) 0.1 (0.0-1.5) % Neut # (Auto) 6.3 H (1.4-5.7) K/uL Lymph # (Auto) 1.2 (0.6-2.4) K/uL [place] # (Auto) 0.7 (0.0-0.8) K/uL Eos # (Auto) 0.2 (0.0-0.7) K/uL Baso # (Auto) 0.0 (0.0-0.1) K/uL Nucleated RBC % 0.0 /100WBC Nucleated RBCs # 0 K/uL Sodium (136-148) mmol/L Potassium (3.5-5.1) mmol/L Chloride (98-107) mmol/L Carbon Dioxide (21.0-32.0) mmol/L BUN (7.0-18.0) mg/dL Creatinine (0.8-1.3) mg/dL Est Cr Clr Drug Dosing mL/min Estimated GFR (MDRD) ml/min Glucose (74-106) mg/dL POC Glucose (60-110) mg/dL Hemoglobin A1c 4.9 (4.5 - 6.2) % Calcium (8.5-10.1) mg/dL Phosphorus (2.6-4.7) mg/dL Magnesium (1.8-2.4) mg/dL Total Bilirubin 0.9 (0.2-1.0) mg/dL Direct Bilirubin 0.20 (0.0-0.5) mg/dL Indirect Bilirubin 0.70 AST 26 (15-37) IU/L ALT 19 (14-63) IU/L Alkaline Phosphatase 67 (46-116) U/L Total Protein 6.6 (6.4-8.2) g/dL Albumin 3.1 L (3.4-5.0) g/dL Globulin 3.5 (2.6-4.0) g/dL Albumin/Globulin Ratio 0.9 (0.9-1.6) Triglycerides (0-200) mg/dL Cholesterol (50-200) mg/dL LDL Cholesterol, Calc (60-180) mg/dL VLDL Cholesterol (5-55) mg/dL HDL Cholesterol (40-60) mg/dL Cholesterol/HDL Ratio (3.3-6.0) Amylase (25-115) U/L Lipase 395 H (73-393) U/L TSH 3rd Generation (0.36-3.74) uIU/mL Urine Color Urine Appearance Urine pH (5.0-8.0) Ur Specific [place] (1.001-1.035) Urine Protein (NEGATIVE) mg/dL Urine Glucose (UA) (NEGATIVE) mg/dL Urine Ketones (NEGATIVE) mg/dL Urine Occult Blood (NEGATIVE) Urine Nitrite (NEGATIVE) Urine Bilirubin (NEGATIVE) Urine Urobilinogen (<2.0) EU/dL Ur Leukocyte Esterase (NEGATIVE) SARS-CoV-2 RNA ([facility]) (NEGATIVE) Med Orders - Current: Current Medications Albuterol/Ipratropium (Duoneb 3.0-0.5 Mg/3 Ml) 3 ml NEB Q4HRRT PRN PRN Reason: Shortness Of Breath/wheezing Hydromorphone HCl (Dilaudid) 1 mg IVPUSH Q3H PRN PRN Reason: Pain (severe 7-10) Last Admin: 09/27/20 08:54 Dose: 1 mg Documented by: Pantoprazole Sodium 40 mg/ (Sodium Chloride) 10 mls @ 200 mls/hr IV Q24H [facility] Last Admin: 09/27/20 08:58 Dose: 200 mls/hr Documented by: Lactated Ringer's (Ringers, Lactated) 1,000 mls @ 200 mls/hr IV Q5H [facility] Ondansetron HCl (Zofran) 4 mg IVPUSH Q4H PRN PRN Reason: Nausea/Vomiting Discontinued Medications Fentanyl (Fentanyl) 50 mcg IVPUSH ONETIME ONE Stop: 09/26/20 18:58 Last Admin: 09/26/20 19:32 Dose: 50 mcg Documented by: Fentanyl (Fentanyl) 50 mcg IVPUSH ONETIME ONE Stop: 09/26/20 19:59 Last Admin: 09/26/20 20:09 Dose: 50 mcg Documented by: Fentanyl (Fentanyl) Confirm Administered Dose 50 mcg .ROUTE .STK-MED ONE Stop: 09/26/20 21:39 Last Admin: 09/26/20 23:16 Dose: Not Given Documented by: Fentanyl (Sublimaze) 50 mcg IVPUSH ONETIME ONE Stop: 09/26/20 21:09 Last Admin: 09/26/20 23:12 Dose: 50 mcg Documented by: Hydromorphone HCl (Dilaudid) 0.5 mg IVPUSH ONETIME ONE Stop: 09/26/20 22:49 Last Admin: 09/26/20 23:10 Dose: 0.5 mg Documented by: Sodium Chloride (Normal Saline) 1,000 mls @ 999 mls/hr IV .Bolus ONE Stop: 09/26/20 19:57 Last Admin: 09/26/20 19:31 Dose: 999 mls/hr Documented by: Lactated Ringer's (Ringers, Lactated) 1,000 mls @ 125 mls/hr IV ASDIRECTED [facility] Last Admin: 09/27/20 00:42 Dose: 125 mls/hr Documented by: Lactated Ringer's (Ringers, Lactated) 1,000 mls @ 999 mls/hr IV .BOLUS [facility] Last Admin: 09/27/20 10:16 Dose: 999 mls/hr Documented by: Ondansetron HCl (Zofran) 4 mg IVPUSH ONETIME ONE Stop: 09/26/20 18:58 Last Admin: 09/26/20 19:32 Dose: 4 mg Documented by: - Exam Quality Assessment: DVT Prophylaxis General: Alert, Oriented, Cooperative, No Acute Distress HEENT: Pupils Equal, Mucous Membr. Moist/[place] Neck: Supple Lungs: Clear to Auscultation, Normal Respiratory Effort Cardiovascular: Regular Rate, Regular Rhythm GI/Abdominal Exam: Normal Bowel Sounds, Soft, No Mass, Tender (Epigastric mid abdominal region as well as left mid quadrant) Back Exam: Normal Inspection, Full Range of Motion Extremities: Normal Inspection, Normal Range of Motion, Non-Tender, No Pedal Edema Neurological: No New Focal Deficit Psy/Mental Status: Alert, Normal Affect, Normal Mood. No: Withdrawal Symptoms Sepsis Event Note - Evaluation Sepsis Screening Result: No Definite Risk - Focused Exam Vital Signs: Vital Signs Temp Pulse Resp BP Pulse Ox Pulse Ox 09/27/20 04:15 97.6 F 72 17 133/80 96 09/27/20 00:21 96 09/27/20 00:19 96 09/27/20 00:18 96 09/26/20 23:35 97.9 F 85 16 152/93 H 96 - Problem List & Annotations (1) Alcoholic pancreatitis SNOMED Code(s): 173417213 Code(s): K85.20 - ALCOHOL INDUCED ACUTE PANCREATITIS WITHOUT NECROSIS OR INFCT Status: Acute Current Visit: Yes Qualifiers: Chronicity: acute Acute pancreatitis complication: no infection or necrosis Qualified Code(s): K85.20 - Alcohol induced acute pancreatitis without necrosis or infection (2) History of alcohol use SNOMED Code(s): 827482982 Code(s): Z87.898 - PERSONAL HISTORY OF OTHER SPECIFIED CONDITIONS Status: Acute Current Visit: Yes - Problem List Review Problem List Initiated/Reviewed/Updated: Yes - My Orders Last 24 Hours: My Active Orders 09/27/20 08:45 Lactated Ringers [Ringers, Lactated] 1,000 ml IV Q5H 09/27/20 10:13 Patient Status [ADT] Stat 09/27/20 Lunch Clear Liquid Diet [DIET] - Plan Plan:: 35 y/o M admitted for acute alcoholic pancreatitis 1. Acute alcoholic pancreatitis -Right upper quadrant ultrasound reveals no cholelithiasis, coarse hepatic echotexture -LFTs stable, hepatitis panel pending -Hepatic steatosis likely secondary to history of alcohol abuse and continued binge alcohol use currently. -Allow clear liquids will monitor tolerance of this. -Continue Dilaudid as needed pain -Did give 2 L bolus LR this morning we will continue LR 200 ml/ hour for now. -Lipase improving -Protonix twice daily due to complaints of dark stools this is likely secondary to Pepto-Bismol use as he has not had no further stools and hemoglobin is stable -Takes no home medications at home lipid panel is stable likely not cause of pancreatitis. A1c within normal limits VTE prophylaxis: SCDs and ambulation CODE STATUS: Full code Dispo: We will make inpatient as he will likely need greater than 2 midnight stay
[2020-09-28] MEDS: Lactated Ringers 1,000 ML IV SCH ×5 (03:58→19:00)
[2020-09-28] MEDS: HYDROmorphone 1 MG/ML Syringe IVPUSH PRN ×2 (04:00→08:57)
[2020-09-28 06:54] LABS: BLOOD UREA NITROGEN,BUN 6 mg/dL (7.0-18.0); CARBON DIOXIDE,CO2 26.3 mmol/L (21.0-32.0); CHLORIDE,CL 100 mmol/L (98-107); GLUCOSE RANDOM 93 mg/dL (74-106); POTASSIUM,K 3.6 mmol/L (3.5-5.1); SODIUM,NA 136 mmol/L (136-148)
[2020-09-28] MEDS: Pantoprazole 40 MG in Sodium Chloride 0.9% 10 ML IV SCH (08:52)
--- NOTE | 2020-09-28 09:39 | PCM.PN ---
- General Info Date of Service: 09/28/20 Admission Dx/Problem (Free Text): Admission Diagnosis/Problem Admission Diagnosis/Problem Pancreatitis Subjective Update: Had soft diet last night and had worsening of pain. Denies chest pain or SOB. Reports mild mid abdominal pain. Passing flatus. Seems improved overall today. Functional Status: Reports: Pain Controlled, Tolerating Diet, Ambulating, Urinating - Review of Systems General: Reports: No Symptoms. Denies: Weakness, Fatigue, Malaise HEENT: Reports: No Symptoms. Denies: Headaches, Sore Throat, Visual Changes Pulmonary: Reports: No Symptoms. Denies: Shortness of Breath Cardiovascular: Reports: No Symptoms. Denies: Chest Pain Gastrointestinal: Reports: Abdominal Pain (mid abdominal pain), Constipation, Flatus. Denies: Nausea, Vomiting Genitourinary: Reports: No Symptoms. Denies: Dysuria, Frequency, Burning Musculoskeletal: Reports: No Symptoms. Denies: Neck Pain, Shoulder Pain Skin: Reports: No Symptoms Neurological: Reports: No Symptoms Psychiatric: Reports: No Symptoms - Patient Data Vitals - Most Recent: Last Vital Signs Temp 97.8 F 09/28/20 08:00 Pulse 88 09/28/20 08:00 Resp 18 09/28/20 08:00 BP 136/83 09/28/20 08:00 Pulse Ox 95 09/28/20 08:00 Weight - Most Recent: 78.5 kg I&O - Last 24 Hours: Intake & Output 09/27/20 09/28/20 09/28/20 22:59 06:59 14:59 Intake Total 2660 3300 Output Total 1860 2500 Balance 800 800 Lab Results Last 24 Hours: Laboratory Results - last 24 hr 09/27/20 09/28/20 09/28/20 Range/Units 13:47 05:45 05:45 WBC 8.57 (4.0-11.0) K/uL RBC 3.66 L (4.50-5.90) M/uL Hgb 12.7 L (13.0-17.0) g/dL Hct 38.4 (38.0-50.0) % MCV 104.9 H (80.0-98.0) fL MCH 34.7 H (27.0-32.0) pg MCHC 33.1 (31.0-37.0) g/dL RDW Std Deviation 52.3 (28.0-62.0) fl RDW Coeff of Jamie 14 (11.0-15.0) % Plt Count 126 L (150-400) K/uL MPV 11.30 (7.40-12.00) fL Neut % (Auto) 76.3 (48.0-80.0) % Lymph % (Auto) 11.4 L (16.0-40.0) % [place] % (Auto) 9.6 (0.0-15.0) % Eos % (Auto) 2.6 (0.0-7.0) % Baso % (Auto) 0.1 (0.0-1.5) % Neut # (Auto) 6.5 H (1.4-5.7) K/uL Lymph # (Auto) 1.0 (0.6-2.4) K/uL [place] # (Auto) 0.8 (0.0-0.8) K/uL Eos # (Auto) 0.2 (0.0-0.7) K/uL Baso # (Auto) 0.0 (0.0-0.1) K/uL Nucleated RBC % 0.0 /100WBC Nucleated RBCs # 0 K/uL Sodium 136 (136-148) mmol/L Potassium 3.6 (3.5-5.1) mmol/L Chloride 100 (98-107) mmol/L Carbon Dioxide 26.3 (21.0-32.0) mmol/L BUN 6 L (7.0-18.0) mg/dL Creatinine 0.8 (0.8-1.3) mg/dL Est Cr Clr Drug Dosing 134.34 mL/min Estimated GFR (MDRD) > 60.0 ml/min Glucose 93 (74-106) mg/dL POC Glucose 92 (60-110) mg/dL Calcium 8.9 (8.5-10.1) mg/dL Total Bilirubin 0.8 (0.2-1.0) mg/dL AST 20 (15-37) IU/L ALT 20 (14-63) IU/L Alkaline Phosphatase 72 (46-116) U/L Total Protein 7.0 (6.4-8.2) g/dL Albumin 3.2 L (3.4-5.0) g/dL Globulin 3.8 (2.6-4.0) g/dL Albumin/Globulin Ratio 0.8 L (0.9-1.6) Med Orders - Current: Current Medications Albuterol/Ipratropium (Duoneb 3.0-0.5 Mg/3 Ml) 3 ml NEB Q4HRRT PRN PRN Reason: Shortness Of Breath/wheezing Hydromorphone HCl (Dilaudid) 1 mg IVPUSH Q3H PRN PRN Reason: Pain (severe 7-10) Last Admin: 09/28/20 08:57 Dose: 1 mg Documented by: Pantoprazole Sodium 40 mg/ (Sodium Chloride) 10 mls @ 200 mls/hr IV Q24H [facility] Last Admin: 09/28/20 08:52 Dose: 200 mls/hr Documented by: Lactated Ringer's (Ringers, Lactated) 1,000 mls @ 200 mls/hr IV Q5H [facility] Last Admin: 09/28/20 08:52 Dose: 200 mls/hr Documented by: Ondansetron HCl (Zofran) 4 mg IVPUSH Q4H PRN PRN Reason: Nausea/Vomiting Discontinued Medications Fentanyl (Fentanyl) 50 mcg IVPUSH ONETIME ONE Stop: 09/26/20 18:58 Last Admin: 09/26/20 19:32 Dose: 50 mcg Documented by: Fentanyl (Fentanyl) 50 mcg IVPUSH ONETIME ONE Stop: 09/26/20 19:59 Last Admin: 09/26/20 20:09 Dose: 50 mcg Documented by: Fentanyl (Fentanyl) Confirm Administered Dose 50 mcg .ROUTE .STK-MED ONE Stop: 09/26/20 21:39 Last Admin: 09/26/20 23:16 Dose: Not Given Documented by: Fentanyl (Sublimaze) 50 mcg IVPUSH ONETIME ONE Stop: 09/26/20 21:09 Last Admin: 09/26/20 23:12 Dose: 50 mcg Documented by: Hydromorphone HCl (Dilaudid) 0.5 mg IVPUSH ONETIME ONE Stop: 09/26/20 22:49 Last Admin: 09/26/20 23:10 Dose: 0.5 mg Documented by: Sodium Chloride (Normal Saline) 1,000 mls @ 999 mls/hr IV .Bolus ONE Stop: 09/26/20 19:57 Last Admin: 12/08/20 19:31 Dose: 999 mls/hr Documented by: Lactated Ringer's (Ringers, Lactated) 1,000 mls @ 125 mls/hr IV ASDIRECTED [facility] Last Admin: 09/27/20 00:42 Dose: 125 mls/hr Documented by: Lactated Ringer's (Ringers, Lactated) 1,000 mls @ 999 mls/hr IV [facility]US [facility] Last Admin: 09/27/20 10:16 Dose: 999 mls/hr Documented by: Ondansetron HCl (Zofran) 4 mg IVPUSH ONETIME ONE Stop: 09/26/20 18:58 Last Admin: 09/26/20 19:32 Dose: 4 mg Documented by: - Exam General: Alert, Oriented, Cooperative, No Acute Distress Neck: Supple Lungs: Clear to Auscultation, Normal Respiratory Effort Cardiovascular: Regular Rate, Regular Rhythm GI/Abdominal Exam: Normal Bowel Sounds, Soft, Tender (epigastric/mid abdominal) Back Exam: Normal Inspection, Full Range of Motion Extremities: Normal Inspection, Normal Range of Motion, Non-Tender, No Pedal E [place] Skin: Warm, Dry, Intact Neurological: No New Focal Deficit Psy/Mental Status: Alert, Normal Affect, Normal Mood. No: Withdrawal Symptoms Sepsis Event Note - Evaluation Sepsis Screening Result: No Definite Risk - Focused Exam Vital Signs: Vital Signs Temp Pulse Resp BP Pulse Ox Pulse Ox 09/28/20 08:00 97.8 F 88 18 136/83 95 09/28/20 04:00 99.5 F 90 16 143/93 H 95 09/28/20 00:19 96 09/28/20 00:18 96 09/27/20 23:38 99.1 F 91 17 136/82 96 - Problem List & Annotations (1) Alcoholic pancreatitis SNOMED Code(s): 962331328 Code(s): K85.20 - ALCOHOL INDUCED ACUTE PANCREATITIS WITHOUT NECROSIS OR INFCT Status: Acute Current Visit: Yes Qualifiers: Chronicity: acute Acute pancreatitis complication: no infection or necrosis Qualified Code(s): K85.20 - Alcohol induced acute pancreatitis without necrosis or infection (2) History of alcohol use SNOMED Code(s): 038587928 Code(s): Z87.898 - PERSONAL HISTORY OF OTHER SPECIFIED CONDITIONS Status: Acute Current Visit: Yes - Problem List Review Problem List Initiated/Reviewed/Updated: Yes - My Orders Last 24 Hours: My Active Orders 09/27/20 08:45 Lactated Ringers [Ringers, Lactated] 1,000 ml IV Q5H 09/27/20 10:13 Patient Status [ADT] Stat 09/28/20 Breakfast Full Liquid Diet [DIET] 09/29/20 05:11 CBC WITH AUTO DIFF [HEME] AM COMPREHENSIVE METABOLIC PN,CMP [CHEM] AM 09/30/20 05:11 CBC WITH AUTO DIFF [HEME] AM COMPREHENSIVE METABOLIC PN,CMP [CHEM] AM - Plan Plan:: 35 y/o M admitted for acute alcoholic pancreatitis 1. Acute alcoholic pancreatitis -Right upper quadrant ultrasound reveals no cholelithiasis, coarse hepatic echotexture -LFTs stable, hepatitis panel pending -Hepatic steatosis likely secondary to history of alcohol abuse and continued binge alcohol use currently. -Back off on diet, didnt tolerate soft. Continue with [place] and low fat -Discontinue dilaudid, start oxycodone -Protonix daily VTE prophylaxis: SCDs and ambulation CODE STATUS: Full code Dispo: 1-2 days
[2020-09-28] MEDS: oxyCODONE 5 MG Tab PO PRN ×3 (13:05→21:26)
[2020-09-29] MEDS: Lactated Ringers 1,000 ML IV SCH ×2 (00:42→09:41)
[2020-09-29] MEDS: oxyCODONE 5 MG Tab PO PRN ×2 (01:46→09:19)
[2020-09-29 04:32] VITALS: PULSE 72
[2020-09-29 06:45] LABS: BLOOD UREA NITROGEN,BUN 4 mg/dL (7.0-18.0); CARBON DIOXIDE,CO2 27.2 mmol/L (21.0-32.0); CHLORIDE,CL 106 mmol/L (98-107); GLUCOSE RANDOM 99 mg/dL (74-106); POTASSIUM,K 4.1 mmol/L (3.5-5.1); SODIUM,NA 141 mmol/L (136-148)
[2020-09-29 08:31] VITALS: BP 132/80
[2020-09-29] MEDS: Pantoprazole 40 MG in Sodium Chloride 0.9% 10 ML IV SCH (09:41)
--- NOTE | 2020-09-29 10:05 | PCM.DCSUM1 ---
Discharge Summary - Hospital Course Brief History: Patient is a 35 y/o M with PMH of kidney stones, who comes in with c/o abdominal pain, left flank that started at about noon today with some Nausea. Patient described the pain shooting , off and on, in his upper abdomen mostly and radiating to back as well. He states he has had passed stones in past but this pain was different. Patient denied fever, chills, vomiting, dysuria. He occasionally smokes cigarettes, states usually binge drinks beer over the weekend. No recreational drugs. CT scan of abdomen showed pancreatitis,no cyst, abscess, USG abdomen didnt show any gall stones, but did show contracted gall bladder with wall thickening, hepatomegaly with mild coarse hepatic texture. Liver enzymes were normal, lipase was elevated. Patient also states he had some black stools today, stools were semi solid, no diarrhea, upon further enuiry, patient stated he did take pepto-bismol at home. Patient is admitted for further work up. Diagnosis: Stroke: No - Discharge Data Discharge Date: 09/29/20 Discharge Disposition: Home, Self-Care 01 Condition: Good - Referral to Home Health Primary Care Physician: PCP None - Discharge Diagnosis/Problem(s) (1) Alcoholic pancreatitis SNOMED Code(s): 779095348 ICD Code: K85.20 - ALCOHOL INDUCED ACUTE PANCREATITIS WITHOUT NECROSIS OR INFCT Status: Acute Qualifiers: Chronicity: acute Acute pancreatitis complication: no infection or necrosis Qualified Code(s): K85.20 - Alcohol induced acute pancreatitis without necrosis or infection (2) History of alcohol use SNOMED Code(s): 056624715 ICD Code: Z87.898 - PERSONAL HISTORY OF OTHER SPECIFIED CONDITIONS Status: Acute - Patient Summary/Data Hospital Course: Admitting diagnoses: Alcoholic pancreatitis Discharge diagnosis; Alcoholic pancreatitis Eulalio was admitted secondary to abdominal pain and findings of acute pancreatitis on CT. He was treated with aggressive IV fluid resuscitation and bowel rest. He was given Dilaudid for pain control. He was slowly started on clear liquid diet. He did attempt soft diet but had significant worsening abdominal pain. He tolerated full liquid diet the past 1 day. Lipase came down from 500s to low 300s. Pain is well maintained with oxycodone and today he is feeling much improved. He was counseled on the importance of sobriety and after this episode of pancreatitis he is very motivated to stop drinking. He will be given resources such as AA meeting list, and human services resource number as well as celebrate recovery. He will be continued on the liquid diet for the next few days to slowly increase to regular diet but monitor fat content. He is to follow-up with PCP in 7 to 10 days return to ER or clinic sooner if concerns should arise. On discharge she did request GI referral this will be provided. - Patient Instructions Diet: Full Liquid Diet (Continue for next couple days then slowly advance to low fat diet) Activity: As Tolerated, No Strenuous Activities Driving: Do Not Drive Showering/Bathing: May Shower Notify Provider of: Fever, Increased Pain, Swelling and Redness, Drainage, Nausea and/or Vomiting - Discharge Plan *PRESCRIPTION DRUG MONITORING PROGRAM REVIEWED*: Not Applicable *COPY OF PRESCRIPTION DRUG MONITORING REPORT IN PATIENT DONNA: Not Applicable Tobacco Cessation Medication: Prescription Refused Home Medications: Home Meds Ondansetron [Zofran] 4 mg BUCCAL Q6H PRN #5 tab 03/26/18 [Rx] Tamsulosin [Flomax] 0.4 mg PO DAILY #5 cap.er 03/26/18 [Rx] Acetaminophen/HYDROcodone [[place] 325-5 MG] 1 - 2 tab PO Q6H PRN #20 tablet 03/21 12/07 [Rx] Ondansetron [Zofran ODT] 1 tab PO Q8H PRN #10 tab.dis 04/10/18 [Rx] Tamsulosin HCl [Flomax] 1 cap PO QAM PRN #5 cap.er.24h 04/10/18 [Rx] Oxygen Therapy Mode: Room Air Patient Handouts: Alcoholic Liver Disease, [id number], Alcohol Use Disorder Referrals: Michael Phillips MD [Resident] - 10/10/20 1:30 pm - Discharge Summary/Plan Comment DC Time >30 min.: No - Patient Data Vitals - Most Recent: Last Vital Signs Temp 98.2 F 09/29/20 08:00 Pulse 72 09/29/20 08:00 Resp 18 09/29/20 08:00 BP 132/80 09/29/20 08:00 Pulse Ox 97 09/29/20 08:00 Weight - Most Recent: 78.5 kg I&O - Last 24 hours: Intake & Output 09/28/20 09/29/20 09/29/20 22:59 06:59 14:59 Intake Total 2870 1620 Output Total 1650 1400 Balance 1220 220 Lab Results - Last 24 hrs: Laboratory Results - last 24 hr 09/27/20 09/29/20 09/29/20 Range/Units 04:47 05:57 05:57 WBC 6.37 (4.0-11.0) K/uL RBC 3.41 L (4.50-5.90) M/uL Hgb 11.7 L (13.0-17.0) g/dL Hct 35.8 L (38.0-50.0) % MCV 105.0 H (80.0-98.0) fL MCH 34.3 H (27.0-32.0) pg MCHC 32.7 (31.0-37.0) g/dL RDW Std Deviation 52.8 (28.0-62.0) fl RDW Coeff of Jamie 14 (11.0-15.0) % Plt Count 133 L (150-400) K/uL MPV 11.30 (7.40-12.00) fL Neut % (Auto) 70.2 (48.0-80.0) % Lymph % (Auto) 15.7 L (16.0-40.0) % Edwards % (Auto) 11.1 (0.0-15.0) % Eos % (Auto) 2.8 (0.0-7.0) % Baso % (Auto) 0.2 (0.0-1.5) % Neut # (Auto) 4.5 (1.4-5.7) K/uL Lymph # (Auto) 1.0 (0.6-2.4) K/uL Edwards # (Auto) 0.7 (0.0-0.8) K/uL Eos # (Auto) 0.2 (0.0-0.7) K/uL Baso # (Auto) 0.0 (0.0-0.1) K/uL Nucleated RBC % 0.0 /100WBC Nucleated RBCs # 0 K/uL Sodium 141 (136-148) mmol/L Potassium 4.1 (3.5-5.1) mmol/L Chloride 106 (98-107) mmol/L Carbon Dioxide 27.2 (21.0-32.0) mmol/L BUN 4 L (7.0-18.0) mg/dL Creatinine 0.8 (0.8-1.3) mg/dL Est Cr Clr Drug Dosing 134.34 mL/min Estimated GFR (MDRD) > 60.0 ml/min Glucose 99 (74-106) mg/dL Calcium 8.8 (8.5-10.1) mg/dL Total Bilirubin 0.5 (0.2-1.0) mg/dL AST 15 (15-37) IU/L ALT 18 (14-63) IU/L Alkaline Phosphatase 60 (46-116) U/L Total Protein 6.3 L (6.4-8.2) g/dL Albumin 2.8 L (3.4-5.0) g/dL Globulin 3.5 (2.6-4.0) g/dL Albumin/Globulin Ratio 0.8 L (0.9-1.6) Hepatitis A IgM Ab Negative (Negative) Hep Bs Antigen Negative (Negative) Hep B Core IgM Ab Negative (Negative) Hepatitis C Antibody <0.1 (0.0-0.9) s/co ratio SHEREE Results - Last 24 hrs: Microbiology 09/28/20 11:00 Stool Occult Blood (SHEREE) - Final Stool / Feces NEGATIVE OCCULT BLOOD REFERENCE RANGE: NEGATIVE Med Orders - Current: Current Medications Albuterol/Ipratropium (Duoneb 3.0-0.5 Mg/3 Ml) 3 ml NEB Q4HRRT PRN PRN Reason: Shortness Of Breath/wheezing Pantoprazole Sodium 40 mg/ (Sodium Chloride) 10 mls @ 200 mls/hr IV Q24H [facility] Last Admin: 09/29/20 09:41 Dose: Not Given Documented by: Lactated Ringer's (Ringers, Lactated) 1,000 mls @ 200 mls/hr IV Q5H [facility] Last Admin: 09/29/20 09:41 Dose: Not Given Documented by: Ondansetron HCl (Zofran) 4 mg IVPUSH Q4H PRN PRN Reason: Nausea/Vomiting Oxycodone HCl (Oxycodone) 5 mg PO Q4H PRN PRN Reason: Pain Last Admin: 09/29/20 09:19 Dose: 5 mg Documented by: Discontinued Medications Fentanyl (Fentanyl) 50 mcg IVPUSH ONETIME ONE Stop: 09/26/20 18:58 Last Admin: 09/26/20 19:32 Dose: 50 mcg Documented by: Fentanyl (Fentanyl) 50 mcg IVPUSH ONETIME ONE Stop: 09/26/20 19:59 Last Admin: 09/26/20 20:09 Dose: 50 mcg Documented by: Fentanyl (Fentanyl) Confirm Administered Dose 50 mcg .ROUTE .STK-MED ONE Stop: 09/26/20 21:39 Last Admin: 09/26/20 23:16 Dose: Not Given Documented by: Fentanyl (Sublimaze) 50 mcg IVPUSH ONETIME ONE Stop: 09/26/20 21:09 Last Admin: 09/26/20 23:12 Dose: 50 mcg Documented by: Hydromorphone HCl (Dilaudid) 0.5 mg IVPUSH ONETIME ONE Stop: 09/26/20 22:49 Last Admin: 09/26/20 23:10 Dose: 0.5 mg Documented by: Hydromorphone HCl (Dilaudid) 1 mg IVPUSH Q3H PRN PRN Reason: Pain (severe 7-10) Last Admin: 09/28/20 08:57 Dose: 1 mg Documented by: Sodium Chloride (Normal Saline) 1,000 mls @ 999 mls/hr IV .Bolus ONE Stop: 09/26/20 19:57 Last Admin: 09/26/20 19:31 Dose: 999 mls/hr Documented by: Lactated Ringer's (Ringers, Lactated) 1,000 mls @ 125 mls/hr IV ASDIRECTED [facility] Last Admin: 09/27/20 00:42 Dose: 125 mls/hr Documented by: Lactated Ringer's (Ringers, Lactated) 1,000 mls @ 999 mls/hr IV .BOLUS [facility] Last Admin: 09/27/20 10:16 Dose: 999 mls/hr Documented by: Ondansetron HCl (Zofran) 4 mg IVPUSH ONETIME ONE Stop: 09/26/20 18:58 Last Admin: 09/26/20 19:32 Dose: 4 mg Documented by: - Exam General: Reports: Alert, Oriented, Cooperative, No Acute Distress Lungs: Reports: Clear to Auscultation, Normal Respiratory Effort Cardiovascular: Reports: Regular Rate, Regular Rhythm GI/Abdominal Exam: Normal Bowel Sounds, Soft, Tender (miild tenderness to epigastric region) Extremities: Normal Inspection, Normal Range of Motion, Non-Tender, No Pedal Edema Neurological: Reports: No New Focal Deficit Psy/Mental Status: Reports: Alert, Normal Affect, Normal Mood
== END 2020-09-29 10:15 | disposition home or self-care (01) | DRG 440 ==
LOC: MW.ED 18:17 → MW.MS 22:42 → OBSVTOIN 09-27 10:13 → MW.MS 09-27 13:31
PROVIDERS: ADMIT Student in an Organized Health Care Education/Training Program; ATTEND Student in an Organized Health Care Education/Training Program
DX: K85.20 Alcohol induced acute pancreatitis without necrosis or infection (principal); F17.210 Nicotine dependence, cigarettes, uncomplicated; Z79.899 Other long term (current) drug therapy; Z87.898 Personal history of other specified conditions; Z87.442 Personal history of urinary calculi; Z98.890 Other specified postprocedural states; Z20.828 Contact with and (suspected) exposure to other viral communicable diseases
CPT/HCPCS: 36415; 74176; 74176-26; 76705; 76705-26; 80048; 80053; 80061; 80074; 80076; 81003; 82150; 82272; 82962; 83036; 83690; 83735; 84100; 84443; 85025; 96374; 96375; 96376; 99283; 99285-25; A9270-GY; C9113; J1170; J2405; J3010; J7030; J7120; U0002